=== PATIENT | female | born 1955 | race Caucasian/White ===

== ENCOUNTER 2022-04-03 06:30 | Day surgery (SDC) | payer MEDICARE ==
[2022-04-03] MEDS ORDERED: Sodium Chloride 0.9% 10 ML Syringe FLUSH ONE (07:00)
[2022-04-03 08:14] VITALS: BP 123/72; PULSE 59
== END 2022-04-03 08:29 | disposition home or self-care (01) ==
LOC: JP.SDS 06:30
PROVIDERS: ATTEND Ophthalmology
DX: H25.12 Age-related nuclear cataract, left eye (principal); G47.33 Obstructive sleep apnea (adult) (pediatric); F17.200 Nicotine dependence, unspecified, uncomplicated; F43.10 Post-traumatic stress disorder, unspecified; F32.A Depression, unspecified
CPT/HCPCS: 66984; V2632